=== PATIENT | female | born 1940 | race Caucasian/White ===

== ENCOUNTER 2024-03-05 10:33 | Day surgery (SDC) | payer MEDICARE, OTHER, SELFPAY ==
[2024-03-05] VITALS (20 sets, daily range): BP systolic 98–165; BP diastolic 57–89; BMI 27.0
[2024-03-05] MEDS: LOW STRENGTH ASPIRIN 81 MG PO (11:39)
--- NOTE | 2024-03-05 12:55 | ITS.CL.CATH ---
Consulting Software Engineer - Catheterization
Cardiac Catheterization
Procedure Report:
CARDIAC CATHETERIZATION REPORT
Date of Procedure: 03/05/2024
Referring: Mahad Mahajan DO
Indication: Exertional dyspnea with abnormal stress test
�
HEMODYNAMIC DATA
AO: 164/76
LV: 164/
�
LEFT VENTRICULOGRAPHY: Hyperdynamic left ventricular wall motion with EF greater than 70% with 1+ mitral regurgitation
�
CORONARY ANGIOGRAPHY
Dominance: Right
Left Main: Calcified without obstruction
LAD: The LAD is severely calcified. There is focal 80% mid LAD stenosis spanning the takeoff of the large third septal wire rope sling maker. There is 70% LAD stenosis distal to the takeoff of a small second diagonal branch. The remainder of the LAD system
has mild luminal irregularities
Circumflex: There is a large ramus intermedius branch with 30% proximal stenosis the circumflex proper is severely calcified with 30% ostial stenosis. There is a small OM1 and a small OM 2 which is subtotally occluded at its origin. There is
highly calcified 60% stenosis spanning the takeoff of OM 2. The circumflex continues on to supply a very large OM 3 which is its terminal branch. There is no significant disease in OM 3.
RCA: Dominant vessel with 20% proximal stenosis and 30-40% mid stenosis. There is a 40% distal RCA lesion just past the crux. The medium to large RPDA has 40% ostial stenosis. The RCA terminates with three moderate-sized posterolateral branches.
FloWire assessment: At the conclusion of the diagnostic study we evaluated the circumflex disease with FloWire. Heparin was used for anticoagulation. An EBU 3.0 guide catheter was used. A Lob pressure wire was advanced into the circumflex and
across the mid disease. iFR measurements were 0.98, 0.98, and 0.98. These are all consistent with nonflow-limiting disease.
Angioplasty: At this point we treated the severe multisegment LAD disease with PCI. This proved to be an extraordinarily challenging undertaking due to the lesion angulation and severe calcification. Using the 6 Italian EBU 3.0 guide, a BMW wire
was advanced into the LAD but could not cross the 80% mid LAD lesion spanning the takeoff of the large third septal wire rope sling maker. The wire was replaced with a hydrophilic whisper wire. With persistent effort we were able to get this wire into the
distal LAD. A 2.0 x 15 Euphora balloon would not cross the 80% mid LAD lesion. The balloon was carefully removed and a 6 Italian guide liner advanced into the LAD to enhance backup support. A 1.25 x 15 sprinter balloon was advanced into the LAD.
With great difficulty we were able to get this balloon to the more distal area of disease and a series of multiple inflations to 14-20 desirae were performed along the entire length of the diseased segment. We then advanced a 2.0 x 12 NC Euphora into
the LAD and again getting the balloon to the distal aspect of the more distal lesion proved quite challenging. A series of multiple balloon inflations along the entire length of diseased LAD was performed between 8 and 19 desirae. We then performed
multiple segmental angioplasties with a 2.25 x 20 mm NC Euphora balloon to maximum 12 desirae with good balloon expansion along the length of the disease segment. At this point we attempted unsuccessfully to pass a 2.5 x 26 [place] PHOEBE through
the diseased segment-the balloon would not cross the area of the original 80% mid LAD lesion. The undeployed stent was carefully removed and discarded when it was clear that there were tines on the distal edge sticking up. We then performed more
aggressive balloon angioplasty with a 2.25 x 15 NC Euphora to 14 desirae along the entire diseased segment. A 2.25 x 22 mm [place] PHOEBE was then successfully advanced to the distal lesion and deployed at 14 desirae. We then overlapped proximally a
2.5 x 30 [place] PHOEBE with stent deployment pressure 17 desirae. Postdilatation of the entire stented segment was then accomplished with a 2.5 x 20 NC Euphora to maximum 23 desirae. The final angiographic result was outstanding. There was no
evidence of sidebranch occlusion on the final angiogram.
This was a technically challenging, complex and prolonged procedure requiring multiple guidewires and numerous different balloons.
�
Closure Device: None-the procedure was performed via the right radial artery. The Jase's test was normal prior to the procedure.
�
Radiation (mGy): 478
DAP (cm2.Gy): 22.3
Fluoroscopy time: 25.9 minutes
�
CONCLUSIONS
1:�Systemic hypertension
2:�Hyperdynamic left ventricular wall motion with EF greater than 70%
3. Mild mitral regurgitation
4. Severely calcific multivessel CAD as described-the highly calcified 60% mid circumflex lesion was evaluated with FloWire and is not flow-limiting
5. Complex stent procedure with placement of overlapping 2.5 x 22 and 2.5 x 30 [place] PHOEBE to treat multisegment highly calcific mid LAD disease as described above
6. Recommend dual antiplatelet therapy for 12 months then lifelong aspirin monotherapy
7. Continue aggressive risk factor modification efforts. Control of hypertension and high intensity statin to achieve LDL less than 70 will be andre
�
�
Copy to: Mahad Mahajan DO, Yancy Funez MD
�
Tl Muñoz MD, [facility], [facility]
[2024-03-05 13:48] LABS: ACT-LR - POC 221 Seconds (116-155)
[2024-03-05 14:46] LABS: ACT-LR - POC 397 Seconds (116-155)
[2024-03-05] MEDS: NITROGLYCERIN PREMIX 250 IV (15:29)
[2024-03-05] MEDS: NSS 1000 IV (15:36)
[2024-03-05 15:47] LABS: ACT-LR - POC > 397 Seconds (116-155)
[2024-03-05 15:47] LABS: ACT-LR - POC > 397 Seconds (116-155)
[2024-03-05] MEDS: LOPRESSOR 25 MG PO (16:04)
--- NOTE | 2024-03-05 16:18 | CM ---
CM following for DC planning needs.
Met w/ patient and spouse at bedside to complete initial assessment.
Pt. resides w/ spouse in a private, 2 story home (mostly maintained on 1st floor of home). Patient is functionally indep. w/ ADLs, mobility without the use of any assisted device.
Pt. has RX plan and uses [facility] on [facility] for prescription needs.
Anticipate DC to home once medically stable.
Will follow.
[2024-03-05 16:39] LABS: Glucose - Point of Care 234 mg/dl (70-99)
--- NOTE | 2024-03-05 17:00 | W.PN.UPDATE ---
Update Note
Progress Note Update
Pt underwent complex LAD PCI with two overlapping stents. Final angiogram with excellent result with no obvious side branch compromise and LUIS 3 flow. She was noted to have ST elevation V1,V2 on first ECG in IVU. Minimal chest pressure then. Sxs
resolved over next 30min. ECG improved. Pain free and HD stable on low does NTG.
[2024-03-05] MEDS: LIPITOR 40 MG PO (17:28)
--- NOTE | 2024-03-05 17:34 | PTCARENOTE ---
Received patient from the mill labor supervisor at 1530 after stents x 2 to the LAD. Radial band in place at right wrist area with ecchymosis present and additional radial band placed proximal to initial band. Fingers cool, but radial pulse palpable with pulse
ox of 97% on RA. Patient appeared sleepy on arrival and stated she felt wiped out. Appeared different to mill labor supervisor nurses, placed on telemetry and VSS however patient began to look slightly restless and was vague about midsternal chest pain. EKG done
which showed Stemi. Yolanda Wakefield NP and Dr. Muñoz in to see the patient and assessed her symptoms as well as her radial site. Patient started on NTG IV and titrated from 5mcg to 20mcg. Had short run of VT and some additional ectopy (couplets,
trigeminy). Notified Yolanda Wakefield NP and patient given metoprolol PO as ordered. Patient began to appear more alert, conversant and comfortable. Now is pain free, at the bedside, removing air from radial band. Eating dinner, call dennis in reach.
--- NOTE | 2024-03-05 18:17 | PTCARENOTE ---
Patient assisted to the bathroom. Denies any chest pain, SR on the monitor, NTG infusing at 20mcg/min. Proximal radial band removed, removing air as ordered form distal radial band.
[2024-03-05] MEDS: NOVOLOG FLEXPEN-MODERATE RESISTANCE 3 UNITS SC (18:39)
--- NOTE | 2024-03-05 20:54 | PTCARENOTE ---
Received patient at change of shift. Patient awake, alert, and oriented sitting in bed. Daughter bedside. Right radial site with external pressure device-- 13mL air remaining. Site ecchymotic, but dry and intact. No complaints of pain at radial
site. Nitro running at 20 mcg/min in left hand. No complaints of chest pain for over two hours, so tapered Nitro down (see flowsheet). BP 101/61, NSR 70s, 95% on room air. Discussed care plan-- patient verbalized understanding. Call dennis within
reach.
[2024-03-05 21:28] LABS: Glucose - Point of Care 137 mg/dl (70-99)
[2024-03-06 03:53] VITALS: BP 146/70
--- NOTE | 2024-03-06 04:29 | PTCARENOTE ---
Patient rested well through the night. No c/o chest pain. Right radial site clean, dry, and intact. Ecchymotic, but soft to touch with no hematoma. Discussed new meds with patient and gave ACS medsheet and CAD book. Patient verbalized appreciation
and understanding.
[2024-03-06 04:48] LABS: Hematocrit 31.7 % (37.0-47.0); Hemoglobin 10.9 g/dL (12.0-16.0); Mean Corp Hgb Conc. 34.4 g/dL (33.0-37.0); Mean Corpuscular Hgb 29.6 pg (27.0-31.0); Mean Corpuscular Volume 86.1 fL (81.0-99.0); Mean Platelet Volume 9.6 fL (7.4-10.4); Platelet Count 387 10^3/uL (130-400); Red Blood Cell Count 3.68 10^6/uL (4.20-5.40); Red Cell Dist. Width 12.9 % (11.5-14.5); White Blood Cell Count 11.9 10^3/uL (4.8-10.8)
[2024-03-06 05:08] LABS: Blood Urea Nitrogen 13 mg/dl (7-17); Calcium 9.1 mg/dl (8.4-10.2); Carbon Dioxide 24 mmol/L (22-30); Chloride 97 mmol/L (98-107); Estimated Creatinine Clearance 65 ml/min; Glucose 144 mg/dl (70-99); HDL Cholesterol 36 mg/dl; LDL Cholesterol, Calculated 76 mg/dl; Potassium 3.7 mmol/L (3.5-5.1); Sodium 136 mmol/L (135-145); Total Cholesterol 152 mg/dl (50-199); Triglyceride 200 mg/dl (10-149); Very Low Density Lipoprotein 40 mg/dl (0-30); eGFR > 60.00
[2024-03-06 06:00] VITALS: BMI 26.8
[2024-03-06 07:05] VITALS: BP 141/71
[2024-03-06 07:11] LABS: Glucose - Point of Care 180 mg/dl (70-99)
--- NOTE | 2024-03-06 09:00 | W.PN.CARDCBS ---
Addendum entered and electronically signed by Emiliano Zaidi MD 03/06/24 11:10:
Patient seen and examined in collaboration with FRICKERTRON CHECKER; agree with below.
-Patient stable status-post PHOEBE x 2 to the LAD yesterday.
-Telemetry stable.
-Stable for discharge to home; outpatient follow-up with primary Garment Looper.
Original Note:
Today's Communication / Plan
-
post PCI LAD, feels good
DAPT ASA/Plavix
stable for d/c home this am
Impression / Plan
-
Primary care physician: Yancy Funez MD
Primary clinical studies specialist: Mahad Mahajan, DO
Impression/Plan:
#CAD/Abnormal NST - post PCI LAD x 2 PHOEBE, post had some reperfusion chest pain and NSVT, non further this am
tele SR, Rad site with some ecchymosis, good pulse
DAPT ASA/Plavix, Stop Imdur
Stop simvastatin you will be on Atorvastatin
Cardiac rehab c/s
f/u Dr. Mahajan in 2-4 weeks
#HTN - continue HCTZ, losartan
#HLD - TG 200, LDL 73 will stop simvastatin switch to atorvastatin - repeat lipids and LFT's in 6-8 weeks
#GERD - continue Protonix
#NIDDM - Hold Metformin post procedure, resume on sat evening
stable for d/c home today
CONCLUSIONS
1:�Systemic hypertension
2:�Hyperdynamic left ventricular wall motion with EF greater than 70%
3. Mild mitral regurgitation
4. Severely calcific multivessel CAD as described-the highly calcified 60% mid circumflex lesion was evaluated with FloWire and is not flow-limiting
5. Complex stent procedure with placement of overlapping 2.5 x 22 and 2.5 x 30 [place] PHOEBE to treat multisegment highly calcific mid LAD disease as described above
6. Recommend dual antiplatelet therapy for 12 months then lifelong aspirin monotherapy
7. Continue aggressive risk factor modification efforts. Control of hypertension and high intensity statin to achieve LDL less than 70 will be andre
�
�
Progress Note - Garment Looper
Subjective
Date of Service: March 06, 2024
no cp, sob
Objective
Labs:
03/06/24 04:06
03/06/24 04:06
Labs
Hgb 10.9 g/dL (12.0-16.0) L 03/06/24 04:06
Hct 31.7 % (37.0-47.0) L 03/06/24 04:06
Plt Count 387 10^3/uL (130-400) 03/06/24 04:06
Sodium 136 mmol/L (135-145) 03/06/24 04:06
Potassium 3.7 mmol/L (3.5-5.1) 03/06/24 04:06
BUN 13 mg/dl (7-17) 03/06/24 04:06
Creatinine 0.6 mg/dL (0.6-1.0) 03/06/24 04:06
Glucose 144 mg/dl (70-99) H 03/06/24 04:06
Vital Signs and I&O:
Vital Signs
Temp Pulse Resp BP Pulse Ox
98.8 F 84 16 146/70 95
03/06/24 07:07 03/06/24 05:30 03/06/24 07:07 03/06/24 03:53 03/06/24 07:07
Vital Signs
Temp Pulse Resp BP Pulse Ox
98.8 F 84 16 146/70 95
03/06/24 07:07 03/06/24 05:30 03/06/24 07:07 03/06/24 03:53 03/06/24 07:07
Intake & Output
03/04/24 03/05/24 03/06/24 03/07/24
06:59 06:59 06:59 06:59
Intake Total 790 / 790
Balance 790 / 790
Physical Exam
Physical Exam
NAD< AOX3
S1, S2, RRR
CTAB, non labored, no wheeze
SNTND bsx4
R rad site c/d/i good pulse, mod ecchymosis
[2024-03-06] MEDS: ORETIC 25 MG PO (09:07)
[2024-03-06] MEDS: COZAAR 25 MG PO (09:07)
[2024-03-06] MEDS: ASPIR LOW (ENTERIC COATED) 81 MG PO (09:07)
[2024-03-06] MEDS: PLAVIX 75 MG PO (09:07)
[2024-03-06] MEDS: PROTONIX 40 MG PO (09:07)
[2024-03-06] MEDS: NOVOLOG FLEXPEN-MODERATE RESISTANCE 1 UNITS SC (09:08)
[2024-03-06 10:06] LABS: Glycohemoglobin (HgbA1c) 8.3 % (4.0-5.6)
--- NOTE | 2024-03-06 10:25 | W.DS.TRANS ---
Addendum entered and electronically signed by Emiliano Zaidi MD 03/06/24 11:09:
Agree with below.
Original Note:
DC Summary - Band Builder
-
Discharge Instructions:
Discharge Diagnosis/Procedures Angioplasty with stent to LAD x 2
Diet Low Cholesterol,Diabetic, Carb Controlled
Driving Restrictions No driving for 24 hours
Other Services Cardiac Rehab
Instructions:
Stand-Alone Forms: DC Instructions- Cath/EP Lab
Changes to Home Medications: Yes
Discharge Medications:
DC Medications w/original date entered in [employer]
aspirin 81 mg tablet 81 mg PO DAILY 03/05/24
hydrochlorothiazide 25 mg tablet 25 mg PO DAILY 03/05/24
losartan 25 mg tablet 25 mg PO DAILY 03/05/24
metformin 500 mg tablet,extended release 24hr (osmotic) 1,500 mg PO DAILY 03/05/24
pantoprazole 40 mg tablet,delayed release 40 mg PO DAILY 03/05/24
atorvastatin 40 mg tablet 40 mg PO QPM #90 tabs 03/06/24
clopidogrel 75 mg tablet 75 mg PO DAILY #90 tabs 03/06/24
metoprolol succinate 25 mg tablet,extended release 24 hr 25 mg PO DAILY #90 tabs 03/06/24
nitroglycerin 0.4 mg sublingual tablet 0.4 mg sublingual [id number] PRN chest pain #25 tabs 03/06/24
Home Medication Changes
new to plavix, nitro, metoprolol, stopped isosorbide and simvastatin was replaced by atorvastatin
Pending Results: No
[2024-03-06 10:35] VITALS: BP 143/67
[2024-03-06] MEDS: TOPROL XL 25 MG PO (10:36)
[2024-03-06] MEDS: KCL 20 MEQ PO (10:36)
--- NOTE | 2024-03-06 11:10 | PTCARENOTE ---
pt continues to be sr on the monitor, hr in the 80s, vss. pt offers no complaints at this time. pt right radial is cdi, slight ecchymosis. pt ambulating through the [place] and tolerating well. pt educated on plan of care and pt verbalized
understanding. call dennis within reach.
[2024-03-06] MEDS: NOVOLOG FLEXPEN-MODERATE RESISTANCE SC (12:41)
--- NOTE | 2024-03-06 12:41 | PTCARENOTE ---
d/c instructions read to pt and pt verbalized understanding. pt left via wheelchair w/ staff member, belongings from room and d/c instructions. iv and tele removed.
== END 2024-03-06 12:45 | disposition home or self-care (01) ==
LOC: CATH 10:33
PROVIDERS: Nurse Practitioner Adult Health; ATTENDING PHYSICIAN Internal Medicine Cardiovascular Disease; FAMILY PHYSICIAN Family Medicine; OTHER PHYSICIAN Internal Medicine Cardiovascular Disease
DX: I25.10 Atherosclerotic heart disease of native coronary artery without angina pectoris (principal); I25.84 Coronary atherosclerosis due to calcified coronary lesion; Z79.82 Long term (current) use of aspirin; Z79.899 Other long term (current) drug therapy; Z79.02 Long term (current) use of antithrombotics/antiplatelets; Z79.84 Long term (current) use of oral hypoglycemic drugs; T82.858A Stenosis of other vascular prosthetic devices, implants and grafts, initial encounter; I10 Essential (primary) hypertension; I34.0 Nonrheumatic mitral (valve) insufficiency
CPT/HCPCS: 80048; 80061; 82962; 83036; 85027; 85347; 93005; 93458; 93799; C1725; C1769; C1874; C1887; C9600; Q9967